=== PATIENT | male | born 1985 | race American Indian/Alaskan Native ===

== ENCOUNTER 2017-09-23 15:13 | Emergency (ER) | payer MEDICAID ==
[~2017-09-23] VITALS: Ht 162.6 cm; Wt 72.7 kg
[2017-09-23 15:14] VITALS: BP 123/63
== END 2017-09-23 16:37 | disposition left against medical advice (07) ==
LOC: M ED 15:13
DX: K08.89 Other specified disorders of teeth and supporting structures (principal); Z53.29 Procedure and treatment not carried out because of patient's decision for other reasons